=== PATIENT | male | born 1955 | race Caucasian/White ===

== ENCOUNTER → 2021-02-06 | Outpatient (CLI) | payer MEDICARE, OTHER | LOC: KOH-I 09:33 | DX: T14.90XA Injury, unspecified, initial encounter (principal) | CPT/HCPCS: 73030 ==

== ENCOUNTER → 2022-07-11 | Outpatient (CLI) | payer MEDICARE, OTHER | LOC: KOH-I 15:27 | DX: R34 Anuria and oliguria (principal); R31.9 Hematuria, unspecified; R10.9 Unspecified abdominal pain; N13.0 Hydronephrosis with ureteropelvic junction obstruction | CPT/HCPCS: 74176 ==